=== PATIENT | female | born 1940 | race Hispanic/Latino ===

== ENCOUNTER → 2017-12-24 | Outpatient (CLI) | payer OTHER | END | disposition home or self-care (01) | LOC: OIH 11:51 | PROVIDERS: ATTEND Family Medicine | DX: M79.89 Other specified soft tissue disorders (principal) | CPT/HCPCS: 73060 ==

== ENCOUNTER → 2018-08-11 | Outpatient (CLI) | payer OTHER | END | disposition home or self-care (01) | LOC: OIH 10:06 | PROVIDERS: ATTEND Family Medicine | DX: M77.31 Calcaneal spur, right foot (principal) | CPT/HCPCS: 73610; 73630 ==

== ENCOUNTER → 2018-08-19 | Outpatient (CLI) | payer OTHER | END | disposition home or self-care (01) | LOC: OIH 10:13 | PROVIDERS: ATTEND Family Medicine | DX: S22.32XA Fracture of one rib, left side, initial encounter for closed fracture (principal); M13.822 Other specified arthritis, left elbow; M25.722 Osteophyte, left elbow; X58.XXXA Exposure to other specified factors, initial encounter; Y93.89 Activity, other specified; Y92.89 Other specified places as the place of occurrence of the external cause; Y99.8 Other external cause status | CPT/HCPCS: 71100; 73080 ==

== ENCOUNTER → 2019-02-10 | Outpatient (CLI) | payer OTHER | END | disposition home or self-care (01) | LOC: SHCH 10:17 | PROVIDERS: ATTEND Internal Medicine Cardiovascular Disease | DX: I87.2 Venous insufficiency (chronic) (peripheral) (principal) | CPT/HCPCS: 93970 ==

== ENCOUNTER → 2019-11-16 | Outpatient (CLI) | payer OTHER | END | disposition home or self-care (01) | LOC: RAH 13:43 | PROVIDERS: ATTEND Family Medicine | DX: S43.401A Unspecified sprain of right shoulder joint, initial encounter (principal); M75.101 Unspecified rotator cuff tear or rupture of right shoulder, not specified as traumatic; X58.XXXA Exposure to other specified factors, initial encounter; Y93.89 Activity, other specified; Y92.89 Other specified places as the place of occurrence of the external cause; Y99.8 Other external cause status | CPT/HCPCS: 73221 ==

== ENCOUNTER → 2020-02-29 | Outpatient (CLI) | payer OTHER | END | disposition home or self-care (01) | LOC: OIH 09:52 | PROVIDERS: ATTEND Family Medicine | DX: I10 Essential (primary) hypertension (principal) | CPT/HCPCS: 71046 ==

== ENCOUNTER → 2020-03-09 | Outpatient (CLI) | payer OTHER | END | disposition home or self-care (01) | LOC: RAH 08:46 | PROVIDERS: ATTEND Orthopaedic Surgery | DX: M75.102 Unspecified rotator cuff tear or rupture of left shoulder, not specified as traumatic (principal); M19.012 Primary osteoarthritis, left shoulder | CPT/HCPCS: 73221 ==

== ENCOUNTER 2020-04-02 08:00 | Inpatient (IN) | payer OTHER ==
[~2020-04-02] VITALS: Ht 157.5 cm; Wt 59.0 kg
[2020-04-02 14:09] LABS: BASOPHILS % (AUTO) 0.6 % (0.0-5.0); EOSINOPHILS % (AUTO) 4.1 % (0.0-8.0); HEMATOCRIT 40.1 % (36-48); LYMPHOCYTES % (AUTO) 17.4 % (21.0-51.0); MEAN CORPUSCULAR HEMOGLOBIN 30.9 pg (27.0-33.0); MEAN CORPUSCULAR HGB CONC 32.7 g/dL (32.0-36.0); MEAN CORPUSCULAR VOLUME 94.6 fL (79-99); MONOCYTES % (AUTO) 8.4 % (3.0-13.0); NEUTROPHILS % (AUTO) 69.2 % (40.0-77.0); PLATELET COUNT (AUTO) 290 K/uL (130-400); RED BLOOD CELL COUNT(AUTO) 4.24 MIL/uL (4.00-5.50); RED CELL DISTRIBUTION WIDTH 14.5 % (11.0-15.5); WHITE BLOOD COUNT (AUTO) 6.7 K/uL (4.8-10.8)
[2020-04-02 14:19] LABS: CREATININE 0.7 mg/dL (0.5-1.5)
[2020-04-02 14:20] LABS: APPEARANCE,URINE Clear (CLEAR); BILIRUBIN,URINE Negative (NEGATIVE); COLOR,URINE Yellow (YELLOW); GLUCOSE, URINE (UA) Negative (NEGATIVE); KETONES,URINE Negative (NEGATIVE); LEUKOCYTE ESTERASE ,URINE Moderate (NEGATIVE); NITRATE,URINE Negative (NEGATIVE); OCCULT BLOOD,URINE Negative (NEGATIVE); PH,URINE 6.5 (5.0-8.0); PROTEIN,URINE Negative (NEGATIVE); UROBILINOGEN,URINE 0.2 mg/dL (0.2-1.0)
[2020-04-02 14:28] LABS: INR 0.95 (0.85-1.15); PROTHROMBIN TIME 10.3 SEC (9.6-11.6)
[2020-04-02 14:36] LABS: BACTERIA,URINE Few /HPF (None Seen); RBC,URINE 0-1 /HPF (0-1); SQUAMOUS EPITHELIAL CELL,UR Few /HPF (0-2)
--- NOTE | 2020-04-05 10:25 | NUR ---
RE: URINALYSIS/CULTURE RESULTS INFORMED DR PHAN REGARDING URINALYSIS RESULTS AND URINE CULTURE RESULTS, NO NEW ORDERS RECEIVED. MAY PROCEED WITH SURGERY.
[2020-04-05 12:30] VITALS: BP 173/68
[2020-04-05] MEDS ORDERED: NAPR-1023 PO (13:19)
[2020-04-05] MEDS ORDERED: METO-391 PO (13:19)
[2020-04-05] MEDS ORDERED: AMLO5TAB4 PO (13:19)
[2020-04-05] MEDS ORDERED: SIMV-43 PO (13:19)
[2020-04-05] MEDS ORDERED: ALEN70TA69 PO (13:19)
[2020-04-05] MEDS ORDERED: ASPI-556 PO (13:19)
[2020-04-06] VITALS (23 sets, daily range): BP systolic 101–130; BP diastolic 42–69
--- NOTE | 2020-04-06 09:16 | NUR ---
PRE-PROCEDURE RECEIVED TO [facility] FOR SCHEDULED RIGHT SHOULDER REVERSE ARTHROPLASTY. AWAKE IN NO ACUTE DISTRESS. DENIES PAIN. STRETCHER IN LOWEST POSITION, CALL LIGHT W/IN REACH, AND SIDE RAILS UP X2.
[2020-04-06] MEDS ORDERED: LACTATED RINGERS 1000ML 1,000 ML IV ONE (09:21)
--- NOTE | 2020-04-06 10:08 | NUR ---
BELONGINGS SENT TO SECURITY.
[2020-04-06] MEDS: CEFAZOLIN SODIUM 1 GM VIAL IVP SCH ×4 (10:09→19:46)
[2020-04-06] MEDS ORDERED: ROPIVACAINE 0.5% 5MG/ML 30ML IJ ONE (12:34)
[2020-04-06] MEDS ORDERED: PROPOFOL 10 MG/ML 20ML VIAL IV ONE (12:36)
[2020-04-06] MEDS ORDERED: LIDOCAINE HCL 5% OINT 36GM TUBE TP ONE (12:36)
[2020-04-06] MEDS ORDERED: CEFAZOLIN SODIUM 1 GM VIAL ONE (12:37)
[2020-04-06] MEDS ORDERED: TRANEXAMIC ACID 1000MG/10ML ONE ×2 (12:37→15:48)
[2020-04-06] MEDS ORDERED: ROCURONIUM 10MG/1ML SYR 10 MG/ML ML ONE (12:37)
[2020-04-06] MEDS ORDERED: FENTANYL CITRATE PF 50 MCG/1 ML 2ML VIAL ONE (12:37)
[2020-04-06] MEDS ORDERED: HETASTARCH IN 0.9 % NACL 500 ML IV ONE (13:04)
[2020-04-06] MEDS ORDERED: GLYCOPYRROLATE 1 MG/5 ML SYRINGE ONE (13:15)
[2020-04-06] MEDS ORDERED: NEOSTIGMINE 5MG/5ML SYR IV ONE (13:15)
[2020-04-06] MEDS ORDERED: DEXAMETHASONE SOD PHOSPHATE 10MG/ML 1ML VIAL ONE (13:15)
[2020-04-06] MEDS ORDERED: ONDANSETRON HCL 4 MG/2 ML VIAL ONE (13:15)
[2020-04-06] MEDS ORDERED: EPHEDRINE SULFATE 50 MG/ML AMPULE ONE (13:21)
[2020-04-06] MEDS ORDERED: CEFAZOLIN SODIUM 1 GM VIAL IRRIG ONE (13:43)
[2020-04-06] MEDS ORDERED: FENTANYL CITRATE PF 50 MCG/1 ML 5ML AMP IV ONE (13:47)
[2020-04-06] MEDS ORDERED: POTASSIUM CHLORIDE 20MEQ/100ML 100 ML IV PRN (15:15)
[2020-04-06] MEDS ORDERED: KETOROLAC TROMETHAMINE 15MG/ML IV PRN (15:15)
[2020-04-06] MEDS ORDERED: POTASSIUM CHLORIDE 10% ELIXIR 20 MEQ/15 ML UDCUP PO PRN (15:15)
[2020-04-06] MEDS ORDERED: ONDANSETRON HCL 4 MG/2 ML VIAL IVP PRN (15:15)
[2020-04-06] MEDS ORDERED: DiphenhydrAMINE HCL 50 MG/ML VIAL IVP PRN (15:15)
[2020-04-06] MEDS ORDERED: TEMAZEPAM 15 MG CAPSULE PO PRN (15:15)
[2020-04-06] MEDS: ACETAMINOPHEN EXTRA STRENGTH 500 MG TABLET PO SCH ×2 (15:15→19:48)
[2020-04-06] MEDS ORDERED: FE FUMARATE/FA/MV, MIN COMB#15 1 TAB PO PRN (15:15)
[2020-04-06] MEDS ORDERED: CALCIUM CARBONATE 500 MG TABLET PO PRN (15:15)
[2020-04-06] MEDS ORDERED: LIDOCAINE HCL-MPF 1% 2ML VIAL IV PRN (15:15)
[2020-04-06] MEDS ORDERED: POTASSIUM CHLORIDE 20 MEQ ERTAB PO PRN (15:15)
[2020-04-06] MEDS ORDERED: TRAMADOL HCL 50 MG TABLET PO PRN (15:15)
--- NOTE | 2020-04-06 16:35 | NUR ---
S/P TOTAL RIGHT SHOULDER ARTHROPLASTY RECEIVED REPORT AT 9393, PATIENT A& AO X 3 DENIES PAIN , VS B/P 113/48, P 81, R 18, O2 SATS 98 ON 2 LITHER NC, HAS HEMO VAC INTACT DRAINING 10CC REMOVED, RIGHT ARM IN SLING, SITE DRY AND INTACT, SCD, PLACED ON BILATERAL LEGS, SIDE RAILS UP TIME 2 IV PUMP INFUSING NS AT 100 CC/HR. OREINATED TO ROOM CALL LIGHT AT SIDE
[2020-04-06] MEDS: OXYCODONE HCL 5 MG TAB PO PRN (17:00)
[2020-04-06] MEDS: SODIUM CHLORIDE 0.9% 1000ML 1,000 ML IV SCH (17:01)
[2020-04-06] MEDS: CELECOXIB 200 MG CAP PO SCH (19:47)
[2020-04-06] MEDS: ASPIRIN 81MG TAB.CHEW PO SCH (19:47)
[2020-04-06] MEDS: FAMOTIDINE 20MG TAB 20 MG TAB PO SCH (19:47)
[2020-04-07] VITALS (7 sets, daily range): BP systolic 102–125; BP diastolic 46–61
[2020-04-07] MEDS: SODIUM CHLORIDE 0.9% 1000ML 1,000 ML IV SCH ×2 (00:36→11:08)
[2020-04-07] MEDS: CEFAZOLIN SODIUM 1 GM VIAL IVP SCH (04:15)
[2020-04-07] MEDS: ACETAMINOPHEN EXTRA STRENGTH 500 MG TABLET PO SCH ×2 (04:16→15:14)
[2020-04-07 05:24] LABS: HEMATOCRIT 31.6 % (36-48); MEAN CORPUSCULAR HEMOGLOBIN 30.9 pg (27.0-33.0); MEAN CORPUSCULAR HGB CONC 33.2 g/dL (32.0-36.0); MEAN CORPUSCULAR VOLUME 92.9 fL (79-99); RED BLOOD CELL COUNT(AUTO) 3.4 MIL/uL (4.00-5.50); RED CELL DISTRIBUTION WIDTH 14.7 % (11.0-15.5); WHITE BLOOD COUNT (AUTO) 12.5 K/uL (4.8-10.8)
[2020-04-07 05:41] LABS: CREATININE 0.7 mg/dL (0.5-1.5); POTASSIUM 3.9 mmol/L (3.5-5.1)
[2020-04-07] MEDS ORDERED: ALENDRONATE SODIUM 35 MG TAB PO SCH (06:30)
[2020-04-07] MEDS: CELECOXIB 200 MG CAP PO SCH ×2 (08:36→20:18)
[2020-04-07] MEDS: AMLODIPINE BESYLATE 5 MG TAB PO SCH (08:36)
[2020-04-07] MEDS: FAMOTIDINE 20MG TAB 20 MG TAB PO SCH ×2 (08:36→20:18)
[2020-04-07] MEDS: ASPIRIN 81MG TAB.CHEW PO SCH ×2 (08:37→20:19)
[2020-04-07] MEDS: POLYETHYLENE GLYCOL 3350 17 GM POWD.PACK PO SCH (08:37)
[2020-04-07] MEDS: OXYCODONE HCL 5 MG TAB PO PRN ×2 (08:37→15:14)
[2020-04-07] MEDS ORDERED: ASPIRIN 81 MG EC TAB PO SCH (09:00)
--- NOTE | 2020-04-07 15:03 | NUR ---
D/C PLAN CM spoke to pt regarding d/c planning. Pt is ind. lives with grandchildren. States she has someone taking caring of grandchildren while in hospital. States daughter named Shelby will be assisting in care along with a private pay caregiver. Denies having any DME. CM explained MD orders for home health. Offered network choices. CM obtained consent for [facility]. CM to fax referral and follow up. Addendum: 04/07/20 at 1507 by LEDY NOLAN CM Amended: Links added.
[2020-04-07] MEDS ORDERED: METOPROLOL SUCCINATE 50 MG TAB.SR.24H PO SCH (21:00)
[2020-04-07] MEDS ORDERED: SIMVASTATIN 20 MG TABLET PO SCH (21:00)
[2020-04-08] MEDS: ACETAMINOPHEN EXTRA STRENGTH 500 MG TABLET PO SCH ×2 (03:25→05:59)
[2020-04-08 03:31] VITALS: BP 108/57
[2020-04-08] MEDS ORDERED: ALENDRONATE SODIUM 35 MG TAB PO SCH (06:30)
[2020-04-08 08:02] VITALS: BP 117/61
[2020-04-08] MEDS: POLYETHYLENE GLYCOL 3350 17 GM POWD.PACK PO SCH (09:01)
[2020-04-08] MEDS: AMLODIPINE BESYLATE 5 MG TAB PO SCH (09:02)
[2020-04-08] MEDS: ASPIRIN 81MG TAB.CHEW PO SCH (09:02)
[2020-04-08] MEDS: CELECOXIB 200 MG CAP PO SCH (09:02)
[2020-04-08] MEDS: FAMOTIDINE 20MG TAB 20 MG TAB PO SCH (09:02)
[2020-04-08] MEDS: OXYCODONE HCL 5 MG TAB PO PRN (09:02)
[2020-04-08] MEDS ORDERED: HYDR-4457 PO (09:25)
[2020-04-08 11:21] VITALS: BP 129/66
--- NOTE | 2020-04-08 11:51 | NUR ---
[facility] spoke to Qiana with [facility]. State pt has been accepted. CONCHIS notified nursing and MD of acceptance. Patient to discharge to home today. Addendum: 04/08/20 at 1157 by LEDY NOLAN CM Amended: Links added.
--- NOTE | 2020-04-09 12:57 | NUR ---
DISCHARGE PATIENT GIVEN DISCHARGE INSTRUCTIONS AND EDUCATION ON FOLLOW UP APPOINTMENTS, DRESSING D/C 04/11/20, SHOULDER EXERCISES RECOMMENDED BY [facility] ([employer]), AND S/S TO REPORT. PATIENT VERBALIZED UNDERSTANDING OF ALL EDUCATION GIVEN VIA TEACH BACK. IV DISCONTINUED, CATHETER INTACT. NO DISTRESS NOTED UPON DISCHARGE. ALL BELONGINGS TAKEN WITH. PAIN OF 0/10 AT DISCHARGE. REPORT GIVEN TO LORENA HORNER, [facility] RN. ON FOLLOW UP APPOINTMENTS, DRESSING D/C 04/11/20, SHOULDER EXERCISES RECOMMENDED BY [facility] ([employer]), AND S/S TO REPORT. NO CONCERNS VOICED.
[2020-04-09] MEDS ORDERED: BISACODYL 10 MG SUPP.RECT RC PRN (15:15)
== END 2020-04-08 13:55 | disposition home health service (06) | DRG 483 ==
LOC: EDSTATUS 08:00 → DAHIP 04-06 08:53 → 3DH 04-06 16:44
PROVIDERS: ADMIT Orthopaedic Surgery; ATTEND Orthopaedic Surgery
PROC: 0RRJ00Z Replacement of Right Shoulder Joint with Reverse Ball and Socket Synthetic Substitute, Open Approach (ICD-10-PCS; principal; 2020-04-06 12:43)
DX: M75.121 Complete rotator cuff tear or rupture of right shoulder, not specified as traumatic (principal); M19.211 Secondary osteoarthritis, right shoulder; G89.29 Other chronic pain; E78.5 Hyperlipidemia, unspecified; I10 Essential (primary) hypertension; K21.9 Gastro-esophageal reflux disease without esophagitis; Z83.3 Family history of diabetes mellitus; Z80.9 Family history of malignant neoplasm, unspecified; Z20.828 Contact with and (suspected) exposure to other viral communicable diseases
CPT/HCPCS: 36415; 73030; 80048; 81001; 85025; 85027; 85610; 87088; 87641; 88304; 88311; 97039; A4565; G0378; J0690; J1100; J2405; J2704; J2710; J2795; J3010; J3490; J7030; J7120; U0003

== ENCOUNTER → 2020-10-01 | Outpatient (CLI) | payer OTHER ==
[~2020-10-01] MED LIST: ALEN70TA69 PO; AMLO5TAB4 PO; ASPI-556 PO; HYDR-4457 PO; METO-391 PO; NAPR-1023 PO; SIMV-43 PO
== END | disposition home or self-care (01) ==
LOC: OIH 09:52
PROVIDERS: ATTEND Family Medicine
DX: M25.511 Pain in right shoulder (principal); Z96.611 Presence of right artificial shoulder joint
CPT/HCPCS: 73030

== ENCOUNTER → 2021-02-08 | Outpatient (CLI) | payer OTHER ==
[~2021-02-08] MED LIST changes: -ALEN70TA69 PO; +ALEN70TA80 PO
== END | disposition home or self-care (01) ==
LOC: RAH 09:49
PROVIDERS: ATTEND Family Medicine
DX: I11.0 Hypertensive heart disease with heart failure (principal); I07.1 Rheumatic tricuspid insufficiency; R55 Syncope and collapse; R79.89 Other specified abnormal findings of blood chemistry; I10 Essential (primary) hypertension; E78.5 Hyperlipidemia, unspecified
CPT/HCPCS: 93306; 93356

== ENCOUNTER → 2022-01-30 | Outpatient (CLI) | payer OTHER | END | disposition home or self-care (01) | LOC: OIH 11:30 | PROVIDERS: ATTEND Family Medicine | DX: M16.12 Unilateral primary osteoarthritis, left hip (principal) | CPT/HCPCS: 73502 ==

== ENCOUNTER 2023-08-12 05:59 | Day surgery (SDC) | payer OTHER ==
[2023-08-07 13:03] LABS: BASOPHILS # (AUTO) 0.06 K/uL (0.00-0.20); BASOPHILS % (AUTO) 0.8 % (0.0-5.0); EOSINOPHILS # (AUTO) 0.17 K/uL (0.00-0.70); EOSINOPHILS % (AUTO) 2.3 % (0.0-8.0); IMMATURE GRANULOCYTE ABSOLUTE 0.07 K/uL (0-1); LYMPHOCYTES % (AUTO) 13.5 % (21.0-51.0); MEAN CORPUSCULAR HEMOGLOBIN 32.4 pg (27.0-33.0); MONOCYTES # (AUTO) 0.7 K/uL (0.1-1.0); NEUTROPHILS # (AUTO) 5.5 K/uL (1.8-7.7); NEUTROPHILS % (AUTO) 73.5 % (40.0-77.0); PLATELET COUNT (AUTO) 301 K/uL (130-400); RED BLOOD CELL COUNT(AUTO) 4.08 MIL/uL (4.00-5.50); RED CELL DISTRIBUTION WIDTH 15.1 % (11.0-15.5); WHITE BLOOD COUNT (AUTO) 7.5 K/uL (4.8-10.8)
[2023-08-07 13:18] LABS: INR 0.94 (0.85-1.15); PROTHROMBIN TIME 10.9 SEC (9.6-11.6)
[2023-08-07 13:20] LABS: PARTIAL THROMBOPLASTIN TIME 30.7 SEC (26.3-35.5)
[2023-08-07 13:50] LABS: ALBUMIN 3.6 g/dL (3.5-5.0); BILIRUBIN,TOTAL 0.4 mg/dL (0.2-1.0); CREATININE 0.7 mg/dL (0.5-1.5); POTASSIUM 3.7 mmol/L (3.5-5.1); TOTAL PROTEIN, SERUM 7.1 g/dL (6.0-8.3)
[2023-08-07 14:03] VITALS: BP 178/67; PULSE 52; RESP 18
[2023-08-12] VITALS (17 sets, daily range): BP systolic 110–142; BP diastolic 44–70; PULSE 59–96; RESP 13–18
[~2023-08-12] VITALS: Ht 144.8 cm; Wt 52.6 kg
[~2023-08-12 05:59] MED LIST changes: -ASPI-556 PO; +CALC-991 PO; +CHOL200074 PO; -HYDR-4457 PO
[2023-08-12] MEDS ORDERED: FENTANYL CITRATE PF 50 MCG/1 ML 5ML AMP IV ONE ×2 (06:47→07:23)
[2023-08-12] MEDS ORDERED: MEROPENEM 1 GM VIAL ONE (06:56)
[2023-08-12] MEDS ORDERED: LACTATED RINGERS 1000ML 1,000 ML IV ONE (06:56)
[2023-08-12] MEDS ORDERED: DEXAMETHASONE SOD PHOSPHATE 10MG/ML 1ML VIAL ONE (07:34)
[2023-08-12] MEDS ORDERED: LIDOCAINE PF 100MG/5ML (2%) SYRINGE 5ML ONE (07:34)
[2023-08-12] MEDS ORDERED: FENTANYL CITRATE PF 50 MCG/1 ML 2ML VIAL ONE (07:35)
[2023-08-12] MEDS ORDERED: ONDANSETRON 4MG INJ ONE (07:35)
[2023-08-12] MEDS ORDERED: PROPOFOL 10 MG/ML 20ML VIAL IV ONE (07:35)
[2023-08-12] MEDS ORDERED: LIDOCAINE HCL/EPINEPHRINE 50 ML VIAL IJ ONE (08:03)
[2023-08-12] MEDS ORDERED: BUPIVACAINE/PF 0.25% 30ML VIAL IJ ONE ×2 (08:03→08:06)
[2023-08-12] MEDS ORDERED: LIDOCAINE 1%-EPI 1:100,000 20 ML VIAL IJ ONE (08:06)
== END 2023-08-12 10:25 | disposition home or self-care (01) ==
LOC: DAH 05:59
PROVIDERS: ATTEND Surgery
DX: K64.1 Second degree hemorrhoids (principal); K62.3 Rectal prolapse; K62.89 Other specified diseases of anus and rectum; I10 Essential (primary) hypertension; E78.5 Hyperlipidemia, unspecified; K21.9 Gastro-esophageal reflux disease without esophagitis; M81.0 Age-related osteoporosis without current pathological fracture; Z79.01 Long term (current) use of anticoagulants; Z98.890 Other specified postprocedural states; Z79.899 Other long term (current) drug therapy; Z83.3 Family history of diabetes mellitus; Z80.0 Family history of malignant neoplasm of digestive organs; Z86.010 Personal history of colon polyps
CPT/HCPCS: 93005; 80053; 85025; 85610; 85730; 36415; 46946; A6260; A4663; J7120 ×2; A4344; J3010 ×2; J3490 ×3; J1100; J2001; J2704; J2405; A4649; A4930; A4215; A4223; A4222; A4221; J2185

== ENCOUNTER 2023-08-18 10:12 | Emergency (ER) | payer OTHER ==
[~2023-08-18] VITALS: Ht 142.2 cm; Wt 52.6 kg
[~2023-08-18 10:12] MED LIST changes: -CHOL200074 PO
[2023-08-18] MEDS ORDERED: LACTATED RINGERS 1000ML 1,000 ML IV ONE (10:30)
[2023-08-18 10:39] LABS: HEMATOCRIT 38.5 % (36-48); MEAN CORPUSCULAR HEMOGLOBIN 31.9 pg (27.0-33.0); MEAN CORPUSCULAR HGB CONC 33.5 g/dL (32.0-36.0); MEAN CORPUSCULAR VOLUME 95.3 fL (79-99); RED BLOOD CELL COUNT(AUTO) 4.04 MIL/uL (4.00-5.50); RED CELL DISTRIBUTION WIDTH 14.5 % (11.0-15.5); WHITE BLOOD COUNT (AUTO) 9.9 K/uL (4.8-10.8)
[2023-08-18 10:52] LABS: CREATININE 1.2 mg/dL (0.5-1.5); POTASSIUM 3.4 mmol/L (3.5-5.1)
[2023-08-18 10:57] LABS: ALBUMIN 3.2 g/dL (3.5-5.0); BILIRUBIN,TOTAL 0.2 mg/dL (0.2-1.0); TOTAL PROTEIN, SERUM 6.7 g/dL (6.0-8.3)
[2023-08-18] MEDS ORDERED: ACETAMINOPHEN 325 MG TAB PO ONE (13:00)
[2023-08-18 14:13] LABS: POTASSIUM 3.1 mmol/L (3.5-5.1)
[2023-08-18] MEDS ORDERED: POTASSIUM BICARB/CIT AC 25 MEQ TABLET.EFF PO ONE (15:00)
[2023-08-18] MEDS ORDERED: 0.9% NACL 500ML IV.SOLN 500 ML IV ONE (15:00)
[2023-08-18 15:12] LABS: ADD UA MICROSCOPIC YES; APPEARANCE,URINE CLOUDY (CLEAR); BILIRUBIN,URINE NEGATIVE (NEGATIVE); COLOR,URINE YELLOW (YELLOW); GLUCOSE, URINE (UA) NEGATIVE (NEGATIVE); KETONES,URINE 5 mg/dL (NEGATIVE); LEUKOCYTE ESTERASE ,URINE NEGATIVE Leu/uL (NEGATIVE); NITRATE,URINE NEGATIVE (NEGATIVE); OCCULT BLOOD,URINE NEGATIVE (NEGATIVE); PROTEIN,URINE 70 mg/dL (NEGATIVE); UROBILINOGEN,URINE 0.2 mg/dL (0.2-1.0)
[2023-08-18 15:14] LABS: BACTERIA,URINE FEW /HPF (None Seen); MUCUS,URINE FEW LPF (None Seen); RBC,URINE 0-1 /HPF (0-1); SQUAMOUS EPITHELIAL CELL,UR MANY /HPF (0-2)
[2023-08-18 16:01] VITALS: BP 136/55; PULSE 67; RESP 16; O2SAT 96
== END 2023-08-18 16:11 | disposition home or self-care (01) ==
LOC: EDH 10:12
DX: R55 Syncope and collapse (principal); E87.6 Hypokalemia; E87.1 Hypo-osmolality and hyponatremia; I10 Essential (primary) hypertension
CPT/HCPCS: 99285; 96360; 70450; 96361; 84484; 80053; 85027; 81001; 36415; 93005; 80048; J7040

== ENCOUNTER 2023-09-28 15:00 | Inpatient (IN) | payer OTHER ==
[2023-09-25 12:09] LABS: BASOPHILS # (AUTO) 0.06 K/uL (0.00-0.20); BASOPHILS % (AUTO) 0.7 % (0.0-5.0); EOSINOPHILS # (AUTO) 0.24 K/uL (0.00-0.70); EOSINOPHILS % (AUTO) 2.8 % (0.0-8.0); HEMATOCRIT 38.6 % (36-48); IMMATURE GRANULOCYTE ABSOLUTE 0.05 K/uL (0-1); LYMPHOCYTES # (AUTO) 1.1 K/uL (1.0-4.8); LYMPHOCYTES % (AUTO) 12.4 % (21.0-51.0); MEAN CORPUSCULAR HEMOGLOBIN 31.8 pg (27.0-33.0); MEAN CORPUSCULAR HGB CONC 33.4 g/dL (32.0-36.0); MEAN CORPUSCULAR VOLUME 95.1 fL (79-99); MONOCYTES # (AUTO) 0.8 K/uL (0.1-1.0); MONOCYTES % (AUTO) 9.4 % (3.0-13.0); NEUTROPHILS # (AUTO) 6.3 K/uL (1.8-7.7); NEUTROPHILS % (AUTO) 74.1 % (40.0-77.0); PLATELET COUNT (AUTO) 335 K/uL (130-400); RED BLOOD CELL COUNT(AUTO) 4.06 MIL/uL (4.00-5.50); WHITE BLOOD COUNT (AUTO) 8.5 K/uL (4.8-10.8)
[2023-09-25 12:27] LABS: INR 0.94 (0.85-1.15); PROTHROMBIN TIME 10.9 SEC (9.6-11.6)
[2023-09-25 12:29] LABS: PARTIAL THROMBOPLASTIN TIME 30.6 SEC (26.3-35.5)
[2023-09-25 12:30] VITALS: BP 146/70; PULSE 58; RESP 16
[2023-09-25 12:31] LABS: ALBUMIN 3.4 g/dL (3.5-5.0); BILIRUBIN,TOTAL 0.4 mg/dL (0.2-1.0); CREATININE 0.6 mg/dL (0.5-1.5); POTASSIUM 3.9 mmol/L (3.5-5.1); TOTAL PROTEIN, SERUM 6.8 g/dL (6.0-8.3)
[~2023-09-28] VITALS: Ht 142.2 cm; Wt 53.0 kg
[~2023-09-28 15:00] MED LIST changes: -CALC-991 PO; +CALCIUM PO; +CHOL100034 PO; -NAPR-1023 PO
[2023-09-30] VITALS (28 sets, daily range): BP systolic 99–159; BP diastolic 45–85; PULSE 52–87; RESP 13–18; O2SAT 97
[2023-09-30] MEDS ORDERED: INVANZ 1GM+NS 50ML IVPB 50 ML IV SCH (07:00)
[2023-09-30] MEDS ORDERED: LIDOCAINE PF 100MG/5ML (2%) SYRINGE 5ML ONE (07:03)
[2023-09-30] MEDS ORDERED: PROPOFOL 10 MG/ML 20ML VIAL IV ONE ×2 (07:03→12:26)
[2023-09-30] MEDS ORDERED: SUCCINYLCHOLINE CHLORIDE 20 MG/ML 10 ML VIAL ONE (07:03)
[2023-09-30] MEDS ORDERED: MIDAZOLAM HCL 1 MG/ML 2ML VIAL ONE (07:04)
[2023-09-30] MEDS ORDERED: NEOSTIGMINE 5MG/5ML SYR IV ONE ×2 (07:04→13:32)
[2023-09-30] MEDS ORDERED: ROCURONIUM 10MG/1ML SYR 10 MG/ML ML ONE (07:04)
[2023-09-30] MEDS ORDERED: GLYCOPYRROLATE 1 MG/5 ML SYRINGE ONE ×2 (07:04→13:32)
[2023-09-30] MEDS ORDERED: DEXAMETHASONE SOD PHOSPHATE 10MG/ML 1ML VIAL ONE ×2 (07:04→12:55)
[2023-09-30] MEDS ORDERED: ONDANSETRON 4MG INJ ONE ×3 (07:04→15:11)
[2023-09-30] MEDS ORDERED: FENTANYL CITRATE PF 50 MCG/1 ML 2ML VIAL ONE ×2 (07:05→12:27)
[2023-09-30] MEDS ORDERED: LACTATED RINGERS 1000ML 1,000 ML IV ONE (07:23)
[2023-09-30] MEDS ORDERED: FAMOTIDINE 20MG VIAL IV ONE (07:24)
[2023-09-30] MEDS ORDERED: PHENYLEPHRINE HCL 10 MG/ML 1ML VIAL IV ONE (07:42)
[2023-09-30] MEDS ORDERED: BUPIVACAINE/PF 0.5% 30ML VIAL ONE (11:55)
[2023-09-30] MEDS ORDERED: LIDOCAINE HCL/EPINEPHRINE 50 ML VIAL IJ ONE (11:55)
[2023-09-30] MEDS ORDERED: KETAMINE HCL 100 MG/ML 5ML VIAL IJ ONE (12:22)
[2023-09-30] MEDS ORDERED: ACETAMINOPHEN 1,000 MG/100 ML VIAL IV ONE (12:23)
[2023-09-30] MEDS ORDERED: ROCURONIUM BROMIDE 10MG/1ML 5ML VL ONE (12:24)
[2023-09-30] MEDS ORDERED: LIDOCAINE HCL MPF 1% 5ML VIAL ONE (12:26)
[2023-09-30] MEDS ORDERED: EPHEDRINE SULFATE 50 MG/ML AMPULE ONE (13:03)
[2023-09-30] MEDS ORDERED: SUGAMMADEX SODIUM 200 MG/2 ML VIAL IV ONE (14:40)
[2023-09-30] MEDS ORDERED: ONDANSETRON 4MG INJ IVP PRN (15:00)
[2023-09-30] MEDS ORDERED: ACETAMINOPHEN 325 MG TAB PO PRN (15:00)
[2023-09-30] MEDS ORDERED: D5W-1/2 NS/20MEQ KCL 1,000 ML IV SCH (15:00)
[2023-09-30] MEDS ORDERED: HYDROCODONE/ACETAMINOPHEN 5/325 MG TAB PO PRN (15:00)
[2023-09-30] MEDS ORDERED: MORPHINE 4 MG SYG IV PRN (15:00)
[2023-09-30] MEDS ORDERED: MORPHINE 2 MG SYG ONE (15:11)
[2023-09-30] MEDS ORDERED: MAGNESIUM 2GM PREMIX 50ML 50 ML IV PRN (20:00)
[2023-09-30] MEDS ORDERED: KCL 20 MEQ ERTAB PO PRN (20:00)
[2023-09-30] MEDS ORDERED: POTASSIUM CHLORIDE 20MEQ/100ML 100 ML IV PRN (20:00)
[2023-10-01 02:57] VITALS: BP 115/72; PULSE 68; RESP 18
[2023-10-01 04:15] LABS: BASOPHILS # (AUTO) 0.01 K/uL (0.00-0.20); BASOPHILS % (AUTO) 0.1 % (0.0-5.0); HEMATOCRIT 37.3 % (36-48); IMMATURE GRANULOCYTE ABSOLUTE 0.05 K/uL (0-1); LYMPHOCYTES # (AUTO) 0.5 K/uL (1.0-4.8); LYMPHOCYTES % (AUTO) 3.4 % (21.0-51.0); MEAN CORPUSCULAR HEMOGLOBIN 31.6 pg (27.0-33.0); MEAN CORPUSCULAR HGB CONC 34.3 g/dL (32.0-36.0); MEAN CORPUSCULAR VOLUME 92.1 fL (79-99); MONOCYTES # (AUTO) 0.4 K/uL (0.1-1.0); NEUTROPHILS % (AUTO) 93.1 % (40.0-77.0); PLATELET COUNT (AUTO) 330 K/uL (130-400); RED BLOOD CELL COUNT(AUTO) 4.05 MIL/uL (4.00-5.50); WHITE BLOOD COUNT (AUTO) 13.9 K/uL (4.8-10.8)
[2023-10-01 04:30] LABS: BILIRUBIN,TOTAL 0.3 mg/dL (0.2-1.0); CREATININE 0.9 mg/dL (0.5-1.5); MAGNESIUM 1.8 mg/dL (1.80-2.40); POTASSIUM 3.5 mmol/L (3.5-5.1); TOTAL PROTEIN, SERUM 6.6 g/dL (6.0-8.3)
[2023-10-01 04:53] LABS: WBC MORPHOLOGY CONSISTENT W/DIFF
[2023-10-01 06:22] VITALS: PULSE 60; RESP 18; O2SAT 96
[2023-10-01 08:00] VITALS: BP 136/66; PULSE 73; RESP 19; O2SAT 99
[2023-10-01] MEDS: POTASSIUM CHLORIDE 10% ELIXIR 20 MEQ/15 ML UDCUP PO PRN ×2 (08:01→09:43)
[2023-10-01] MEDS: SIMETHICONE 80 MG TAB.CHEW PO SCH ×2 (11:00→13:20)
[2023-10-01 12:00] VITALS: BP 138/78; PULSE 78; RESP 19
[2023-10-01] MEDS ORDERED: DOCU-116 PO (14:45)
[2023-10-01 16:00] VITALS: BP 118/64; PULSE 71; RESP 18
== END 2023-10-01 17:25 | disposition home or self-care (01) | DRG 331 ==
LOC: DAHIP 09-30 06:43 → EDSTATUS 09-30 15:00 → 4BH 09-30 16:35
PROVIDERS: ADMIT Surgery; ATTEND Surgery
PROC: 8E0W4CZ Robotic Assisted Procedure of Trunk Region, Percutaneous Endoscopic Approach (ICD-10-PCS; 2023-09-30)
PROC: 0DJD8ZZ Inspection of Lower Intestinal Tract, Via Natural or Artificial Opening Endoscopic (ICD-10-PCS; 2023-09-30)
PROC: 0DQP4ZZ Repair Rectum, Percutaneous Endoscopic Approach (ICD-10-PCS; principal; 2023-09-30 12:50)
DX: K62.3 Rectal prolapse (principal); E78.5 Hyperlipidemia, unspecified; I10 Essential (primary) hypertension; K21.9 Gastro-esophageal reflux disease without esophagitis; K25.9 Gastric ulcer, unspecified as acute or chronic, without hemorrhage or perforation; M81.0 Age-related osteoporosis without current pathological fracture; Z80.9 Family history of malignant neoplasm, unspecified; Z82.0 Family history of epilepsy and other diseases of the nervous system; Z83.3 Family history of diabetes mellitus; Z87.11 Personal history of peptic ulcer disease
CPT/HCPCS: 36415; 45378; 80053; 83735; 85025; 85610; 85730; 86850; 86900; 86901; 93005; A4344; G0378; J0330; J1100; J1335; J2001; J2250; J2270; J2371; J2405; J2704; J2710; J3010; J3475; J3480; J3490; J7030; J7120; A4215; A4221; A4222; A4223; A4600; A4649; A4663; A4930; A6260; G0168; J0665

== ENCOUNTER → 2023-10-06 | Outpatient (CLI) | payer OTHER ==
[~2023-10-06] MED LIST changes: +DOCU-116 PO
[2023-10-06 16:10] LABS: BASOPHILS # (AUTO) 0.05 K/uL (0.00-0.20); BASOPHILS % (AUTO) 0.6 % (0.0-5.0); EOSINOPHILS # (AUTO) 0.27 K/uL (0.00-0.70); EOSINOPHILS % (AUTO) 3.2 % (0.0-8.0); HEMATOCRIT 39.8 % (36-48); IMMATURE GRANULOCYTE ABSOLUTE 0.11 K/uL (0-1); LYMPHOCYTES # (AUTO) 1.1 K/uL (1.0-4.8); LYMPHOCYTES % (AUTO) 12.9 % (21.0-51.0); MEAN CORPUSCULAR HEMOGLOBIN 31.6 pg (27.0-33.0); MEAN CORPUSCULAR HGB CONC 32.4 g/dL (32.0-36.0); MEAN CORPUSCULAR VOLUME 97.5 fL (79-99); MONOCYTES # (AUTO) 0.7 K/uL (0.1-1.0); MONOCYTES % (AUTO) 7.9 % (3.0-13.0); NEUTROPHILS # (AUTO) 6.3 K/uL (1.8-7.7); NEUTROPHILS % (AUTO) 74.1 % (40.0-77.0); PLATELET COUNT (AUTO) 366 K/uL (130-400); RED BLOOD CELL COUNT(AUTO) 4.08 MIL/uL (4.00-5.50); RED CELL DISTRIBUTION WIDTH 14.6 % (11.0-15.5); WHITE BLOOD COUNT (AUTO) 8.5 K/uL (4.8-10.8)
[2023-10-06 16:25] LABS: INR < 0.93 (0.85-1.15); PROTHROMBIN TIME 10.5 SEC (9.6-11.6)
[2023-10-06 16:27] LABS: PARTIAL THROMBOPLASTIN TIME 30.9 SEC (26.3-35.5)
[2023-10-06 16:28] LABS: CREATININE 0.6 mg/dL (0.5-1.5); POTASSIUM 3.4 mmol/L (3.5-5.1)
== END | disposition home or self-care (01) ==
LOC: LAB 11:53
PROVIDERS: ATTEND Internal Medicine Cardiovascular Disease
DX: I87.2 Venous insufficiency (chronic) (peripheral) (principal); I50.31 Acute diastolic (congestive) heart failure
CPT/HCPCS: 36415; 80048; 85025; 85610; 85730

== ENCOUNTER → 2023-10-20 | Outpatient (CLI) | payer OTHER | END | disposition home or self-care (01) | LOC: SHCH 15:35 | PROVIDERS: ATTEND Internal Medicine Cardiovascular Disease | DX: I87.2 Venous insufficiency (chronic) (peripheral) (principal) | CPT/HCPCS: 93971 ==

== ENCOUNTER → 2023-11-09 | Outpatient (CLI) | payer OTHER | END | disposition home or self-care (01) | LOC: RAH 13:34 | PROVIDERS: ATTEND Family Medicine | DX: R09.89 Other specified symptoms and signs involving the circulatory and respiratory systems (principal); J84.9 Interstitial pulmonary disease, unspecified; I11.9 Hypertensive heart disease without heart failure | CPT/HCPCS: 71045 ==

== ENCOUNTER → 2024-05-23 | Outpatient (CLI) | payer OTHER ==
[2024-05-23] MEDS: REGADENOSON 0.4 MG/5 ML PF SYG IVP ONE (11:11)
== END | disposition home or self-care (01) ==
LOC: SHCH 08:22
PROVIDERS: ATTEND Internal Medicine Cardiovascular Disease
DX: R06.09 Other forms of dyspnea (principal); R07.9 Chest pain, unspecified
CPT/HCPCS: 78452; 96374; 93017; J2785; A9500 ×2

== ENCOUNTER → 2024-06-09 | Outpatient (CLI) | payer OTHER | END | disposition home or self-care (01) | LOC: SHCH 13:13 | PROVIDERS: ATTEND Internal Medicine Cardiovascular Disease | DX: R06.09 Other forms of dyspnea (principal); R07.9 Chest pain, unspecified | CPT/HCPCS: 93306 ==

== ENCOUNTER 2024-08-04 13:00 | Inpatient (IN) | payer OTHER ==
[~2024-08-04] VITALS: Ht 149.9 cm; Wt 59.9 kg
[~2024-08-04 13:00] MED LIST changes: -CHOL100034 PO; -DOCU-116 PO
[2024-08-04 13:38] VITALS: BP 148/76; PULSE 68; RESP 16; TEMP 97.6
[2024-08-04 13:41] LABS: BASOPHILS # (AUTO) 0.05 K/uL (0.00-0.20); BASOPHILS % (AUTO) 0.7 % (0.0-5.0); EOSINOPHILS # (AUTO) 0.12 K/uL (0.00-0.70); EOSINOPHILS % (AUTO) 1.6 % (0.0-8.0); HEMATOCRIT 39.8 % (36-48); IMMATURE GRANULOCYTE ABSOLUTE 0.04 K/uL (0-1); LYMPHOCYTES # (AUTO) 0.8 K/uL (1.0-4.8); LYMPHOCYTES % (AUTO) 11.5 % (21.0-51.0); MEAN CORPUSCULAR HEMOGLOBIN 32.7 pg (27.0-33.0); MEAN CORPUSCULAR HGB CONC 33.9 g/dL (32.0-36.0); MEAN CORPUSCULAR VOLUME 96.4 fL (79-99); MONOCYTES # (AUTO) 0.6 K/uL (0.1-1.0); MONOCYTES % (AUTO) 8.4 % (3.0-13.0); NEUTROPHILS # (AUTO) 5.6 K/uL (1.8-7.7); NEUTROPHILS % (AUTO) 77.3 % (40.0-77.0); PLATELET COUNT (AUTO) 272 K/uL (130-400); RED BLOOD CELL COUNT(AUTO) 4.13 MIL/uL (4.00-5.50); RED CELL DISTRIBUTION WIDTH 14.6 % (11.0-15.5); WHITE BLOOD COUNT (AUTO) 7.3 K/uL (4.8-10.8)
[2024-08-04 13:51] LABS: CREATININE 0.8 mg/dL (0.5-1.0); POTASSIUM 3.4 mmol/L (3.5-5.1)
[2024-08-04] MEDS ORDERED: CHOL2000 PO (14:13)
[2024-08-04] MEDS ORDERED: IBUP-2070 PO (14:14)
[2024-08-09] VITALS (26 sets, daily range): BP systolic 91–163; BP diastolic 37–97; PULSE 61–98; RESP 10–18; TEMP 97.1–98.2; O2SAT 97
[2024-08-09] MEDS: ceFAZolin SODIUM 2 GM VIAL ONE (06:31)
[2024-08-09] MEDS: FAMOTIDINE 20MG VIAL IV ONE (07:03)
[2024-08-09] MEDS: acetaMINOPHEN 1,000 MG/100 ML VIAL IV ONE (07:03)
[2024-08-09] MEDS ORDERED: ketaMINE 50MG/ML SYRINGE 50 MG/ML DISP.SYRIN ONE (07:07)
[2024-08-09] MEDS: LACTATED RINGERS 1000ML 1,000 ML IV ONE (08:56)
[2024-08-09] MEDS ORDERED: proPOFol 10 MG/ML 20ML VIAL IV ONE (11:01)
[2024-08-09] MEDS ORDERED: LIDOCAINE PF 100MG/5ML (2%) SYRINGE 5ML ONE (11:01)
[2024-08-09] MEDS ORDERED: rocuRONium bROMide 10MG/1ML 5ML VL ONE ×2 (11:01→13:44)
[2024-08-09] MEDS ORDERED: FENTanyl CITRate PF 50 MCG/1 ML 2ML VIAL ONE (11:02)
[2024-08-09] MEDS: INDOCYANINE GREEN 25 MG VIAL IJ ONE (12:19)
[2024-08-09] MEDS ORDERED: LIDOCAINE 1%-EPI 1:100,000 20 ML VIAL ONE (12:33)
[2024-08-09] MEDS ORDERED: dexaMETHasone SOD PHOSPHATE 10MG/ML 1ML VIAL ONE (12:41)
[2024-08-09] MEDS ORDERED: ondanSETRON 4MG INJ ONE (12:41)
[2024-08-09] MEDS: LIDOCAINE 1%-EPI 1:100,000 20 ML VIAL ONE (12:58)
[2024-08-09] MEDS: BUPIvacaine/PF 0.25% 30ML VIAL IJ ONE (12:58)
[2024-08-09] MEDS ORDERED: ePHEDrine SULFate 50 MG/ML AMPULE ONE (13:02)
[2024-08-09] MEDS ORDERED: GLYCOPYRROLATE 0.2 MG/ML 5 ML VIAL ONE (13:02)
[2024-08-09] MEDS ORDERED: NEOSTIGMINE METHYLSULFATE 1MG/ML IV ONE (13:05)
[2024-08-09] MEDS: MEROPENEM 1 GM VIAL ONE (15:25)
[2024-08-09] MEDS ORDERED: INSULIN humuLIN R 100 UNIT/ML 3ML SQ PRN (16:30)
[2024-08-09] MEDS ORDERED: hydroMORPHone 0.5 MG SYG (0.5MG/0.5ML) IVP PRN (16:30)
[2024-08-09] MEDS ORDERED: ondanSETRON 4MG INJ IVP PRN (16:30)
[2024-08-09] MEDS: acetaMINOPHEN 325 MG TAB PO SCH (16:30)
[2024-08-09] MEDS: LACTATED RINGERS 1000ML 1,000 ML IV SCH (17:42)
[2024-08-09] MEDS: hydrALAZine 20MG/ML VIAL IV PRN (20:06)
[2024-08-09] MEDS: ZOSYN 3.375GM+NS 50ML 50 ML IV SCH (20:13)
[2024-08-09] MEDS ORDERED: MAGNESIUM 2GM PREMIX 50ML 50 ML IV PRN (20:30)
[2024-08-09] MEDS ORDERED: PoTASSium chloRIDE 20MEQ/100ML 100 ML IV PRN (20:30)
[2024-08-09] MEDS: FAMOTIDINE 20MG VIAL IV SCH (22:38)
[2024-08-10 04:00] VITALS: BP 130/57; PULSE 91; RESP 18; TEMP 98.1
[2024-08-10 05:10] LABS: BASOPHILS # (AUTO) 0.02 K/uL (0.00-0.20); BASOPHILS % (AUTO) 0.1 % (0.0-5.0); EOSINOPHILS # (AUTO) 0.03 K/uL (0.00-0.70); EOSINOPHILS % (AUTO) 0.2 % (0.0-8.0); HEMATOCRIT 40.2 % (36-48); IMMATURE GRANULOCYTE ABSOLUTE 0.09 K/uL (0-1); LYMPHOCYTES # (AUTO) 0.7 K/uL (1.0-4.8); LYMPHOCYTES % (AUTO) 4.5 % (21.0-51.0); MEAN CORPUSCULAR HEMOGLOBIN 32.4 pg (27.0-33.0); MEAN CORPUSCULAR HGB CONC 34.6 g/dL (32.0-36.0); MEAN CORPUSCULAR VOLUME 93.7 fL (79-99); MONOCYTES # (AUTO) 1.3 K/uL (0.1-1.0); MONOCYTES % (AUTO) 8.8 % (3.0-13.0); NEUTROPHILS # (AUTO) 12.7 K/uL (1.8-7.7); NEUTROPHILS % (AUTO) 85.8 % (40.0-77.0); PLATELET COUNT (AUTO) 268 K/uL (130-400); RED BLOOD CELL COUNT(AUTO) 4.29 MIL/uL (4.00-5.50); RED CELL DISTRIBUTION WIDTH 13.8 % (11.0-15.5); WHITE BLOOD COUNT (AUTO) 14.9 K/uL (4.8-10.8)
[2024-08-10 05:20] LABS: CREATININE 0.7 mg/dL (0.5-1.0); POTASSIUM 3.4 mmol/L (3.5-5.1)
[2024-08-10 05:45] LABS: HEMOGLOBIN A1C 5.7 % (4.0-6.0)
[2024-08-10 08:00] VITALS: O2SAT 96
[2024-08-10 08:12] VITALS: BP 114/64; PULSE 91; RESP 17; TEMP 98.4
[2024-08-10] MEDS: ENOXAPARIN SODIUM 40 MG/0.4 ML SYRINGE SQ SCH (09:31)
[2024-08-10] MEDS: traMADol HCL 50 MG TABLET PO PRN (09:32)
[2024-08-10 11:46] VITALS: BP 114/58; PULSE 79; RESP 17; TEMP 98.2
[2024-08-10] MEDS ORDERED: LACTULOSE 20 GM/30 ML UDCUP PO PRN (12:00)
[2024-08-10 16:27] LABS: BASOPHILS # (AUTO) 0.03 K/uL (0.00-0.20); BASOPHILS % (AUTO) 0.2 % (0.0-5.0); EOSINOPHILS # (AUTO) 0.06 K/uL (0.00-0.70); EOSINOPHILS % (AUTO) 0.5 % (0.0-8.0); HEMATOCRIT 37.8 % (36-48); IMMATURE GRANULOCYTE ABSOLUTE 0.08 K/uL (0-1); LYMPHOCYTES # (AUTO) 0.9 K/uL (1.0-4.8); LYMPHOCYTES % (AUTO) 7.2 % (21.0-51.0); MEAN CORPUSCULAR HEMOGLOBIN 33.1 pg (27.0-33.0); MEAN CORPUSCULAR HGB CONC 34.7 g/dL (32.0-36.0); MEAN CORPUSCULAR VOLUME 95.5 fL (79-99); MONOCYTES % (AUTO) 8.7 % (3.0-13.0); NEUTROPHILS % (AUTO) 82.7 % (40.0-77.0); PLATELET COUNT (AUTO) 256 K/uL (130-400); RED BLOOD CELL COUNT(AUTO) 3.96 MIL/uL (4.00-5.50); RED CELL DISTRIBUTION WIDTH 14.3 % (11.0-15.5)
[2024-08-10 16:58] VITALS: BP 174/69; PULSE 76; RESP 18; TEMP 98
[2024-08-10] MEDS: PoTASSium chloRIDE 20MEQ ER 20 MEQ ERTAB PO ONE (17:36)
== END 2024-08-10 18:50 | disposition home or self-care (01) | DRG 331 ==
LOC: DAHIP 08-09 06:27 → EDSTATUS 08-09 13:00 → 4AH 08-09 17:35
PROVIDERS: ADMIT Surgery; ATTEND Surgery
PROC: 8E0W4CZ Robotic Assisted Procedure of Trunk Region, Percutaneous Endoscopic Approach (ICD-10-PCS; 2024-08-09)
PROC: 0DSP4ZZ Reposition Rectum, Percutaneous Endoscopic Approach (ICD-10-PCS; principal; 2024-08-09 12:22)
PROC: 0DUP4JZ Supplement Rectum with Synthetic Substitute, Percutaneous Endoscopic Approach (ICD-10-PCS; 2024-08-09 12:22)
DX: K62.3 Rectal prolapse (principal); I10 Essential (primary) hypertension; E78.5 Hyperlipidemia, unspecified; K21.9 Gastro-esophageal reflux disease without esophagitis; M81.0 Age-related osteoporosis without current pathological fracture; Z82.0 Family history of epilepsy and other diseases of the nervous system; Z83.3 Family history of diabetes mellitus; Z87.11 Personal history of peptic ulcer disease
CPT/HCPCS: 36415; 45330; 80048; 82948; 83036; 85025; 86850; 86900; 86901; 93005; A4344; C1781; G0378; J0360; J1100; J1650; J2003; J2185; J2405; J2543; J2704; J2710; J3010; J3490; J7030; J7120; A4213; A4215; A4216; A4221; A4222; A4223; A4649; A4930; A6260; C1769; J0665; J0690

== ENCOUNTER → 2025-03-15 | Outpatient (CLI) | payer OTHER ==
[~2025-03-15] MED LIST changes: +CHOL2000 PO; +IBUP-2070 PO
--- NOTE | 2025-03-15 12:06 | HMCIMG ---
MAMMO SCREENING BILATERAL HISTORY: Screening mammogram. COMPARISON: 05/29/2015 TECHNIQUE: Bilateral screening mammogram with CAD was performed with craniocaudal and mediolateral oblique projections. FINDINGS: The breasts are heterogeneous dense, which may obscure small masses. There is no evidence of a dominant mass, or suspicious microcalcification. There is no evidence of nipple retraction or skin thickening. IMPRESSION: 1. Stable mammogram. Patient was entered into a reminder system with a target due date for their next mammogram. BI-RADS: CATEGORY 2: BENIGN FINDINGS Recommend monthly self breast exam as well as annual clinical examination. A negative x-ray should not delay biopsy if a dominant or clinically suspicious mass is present, since 8-10% of cancers are not identified by mammography. Dense breasts particularly, may obscure an underlying neoplasm. Some of these may be detected clinically and therefore, clinical examination is an essential part of breast evaluation.
== END | disposition home or self-care (01) ==
LOC: RAH 11:38
PROVIDERS: ATTEND Family Medicine
DX: Z12.31 Encounter for screening mammogram for malignant neoplasm of breast (principal); R92.333 Mammographic heterogeneous density, bilateral breasts
CPT/HCPCS: 77067

== ENCOUNTER → 2025-06-08 | Outpatient (CLI) | payer OTHER ==
[~2025-06-08] MED LIST changes: +IBUP-1492 PO; -IBUP-2070 PO
--- NOTE | 2025-06-12 12:38 | HMCIMG ---
CLINICAL INDICATION: Age-related osteoporosis without current pathological fracture COMPARISON: None available TECHNIQUE: Bone densitometry is performed of the lumbar spine and left hip. FINDINGS: Total BMD of lumbar spine is 0.841 g/cm2 with a T-score of -0.8 and Z-score is 1.5. Total BMD of left hip is 1.075 g/cm2 with a T-score of 0.0 and Z-score is 2.9. FRAX SCORE: Not reported IMPRESSION: 1. Osteopenia of the lumbar spine 2. Normal left hip 3. I would recommend follow-up in 13 months World Health Organization criteria for BMD interpretation classify patients as Normal (T-score at or above -1.0), Osteopenic (T-score between -1.0 and -2.5), or Osteoporotic (T-score at or below -2.5). FRAX SCORE: A. All treatment decisions require clinical judgment and consideration of individual patient factors, including patient preferences, comorbidities, previous drug use, risk factors not captured in the FRAX model (e.g., frailty, falls, vitamin D deficiency, increased bone turnover, interval significant decline in bone density) and possible pigkw-[id number]-estimation of fracture risk by FRAX. B. In addition, the NOF Guide recommends that FDA-approved medical therapies be considered in postmenopausal women and men age greater than or equal to 50 years with a: i. Hip or vertebral (clinical or morphometric) fracture. ii. T-score of less than or equal to -2.5 at the spine or hip. iii. Ten-year fracture probability by FRAX of greater than or equal to 3% for hip fracture of greater than or equal to 20% for major osteoporotic fracture.
== END | disposition home or self-care (01) ==
LOC: RAH 10:02
PROVIDERS: ATTEND Family Medicine
DX: M85.88 Other specified disorders of bone density and structure, other site (principal); M81.0 Age-related osteoporosis without current pathological fracture
CPT/HCPCS: 77080

== ENCOUNTER → 2025-10-09 | Outpatient (CLI) | payer OTHER ==
[2025-10-09 21:33] VITALS: PULSE 64; RESP 12
[2025-10-09 22:00] VITALS: PULSE 62; RESP 14
[2025-10-09 22:30] VITALS: PULSE 58; RESP 16
[2025-10-09 23:00] VITALS: PULSE 56; RESP 14
[2025-10-09 23:30] VITALS: PULSE 87; RESP 16
[2025-10-10] VITALS (11 sets, daily range): PULSE 47–59; RESP 12–14
== END | disposition home or self-care (01) ==
LOC: SLP 20:20
PROVIDERS: ATTEND Family Medicine
DX: G47.33 Obstructive sleep apnea (adult) (pediatric) (principal); R40.0 Somnolence; I50.32 Chronic diastolic (congestive) heart failure
CPT/HCPCS: 95810